=== PATIENT | male | born 1960 | race Asian ===

== ENCOUNTER 2024-01-28 06:00 | Day surgery (SDC) | payer BC ==
[2024-01-24 15:25] LABS: BILIRUBIN,URINE NEGATIVE (NEGATIVE); BLOOD, URINE 3+ (NEGATIVE); COLOR,URINE YELLOW (YELLOW); GLUCOSE,URINE NEGATIVE (NEGATIVE); KETONES,URINE NEGATIVE (NEGATIVE); LEUKOCYTE ESTERASE ,URINE NEGATIVE (NEGATIVE); NITRITE, URINE NEGATIVE (NEGATIVE); PROTEIN URINE NEGATIVE (NEGATIVE); UROBILINOGEN,URINE 0.2 (0.2-1.0)
[2024-01-24 15:29] LABS: BASOPHILS % (AUTO) 0.8 % (0.0-2.0); EOSINOPHILS # (AUTO) 0.1 K/uL (0.0-0.4); EOSINOPHILS % (AUTO) 1.5 % (0.0-4.0); HEMATOCRIT 40.1 % (36-54); LYMPHOCYTES # (AUTO) 1.5 K/uL (1.0-5.5); LYMPHOCYTES % (AUTO) 31.5 % (20.5-51.5); MEAN CORPUSCULAR HEMOGLOBIN 30 pg (27-31); MEAN CORPUSCULAR HGB CONC 35 % (32-36); MEAN CORPUSCULAR VOLUME 86 fL (79.0-98.0); MONOCYTES # (AUTO) 0.3 K/uL (0.0-1.0); MONOCYTES % (AUTO) 6.9 % (1.7-9.3); NEUTROPHILS # (AUTO) 2.9 K/uL (1.8-7.7); NEUTROPHILS % (AUTO) 59.3 % (40.0-70.0); PLATELET COUNT (AUTO) 169 K/uL (130-430); RED BLOOD CELL COUNT(AUTO) 4.67 MIL/uL (4.2-6.2); RED CELL DISTRIBUTION WIDTH 13.2 % (9.0-15.0); WHITE BLOOD COUNT (AUTO) 4.8 K/uL (4.8-10.8)
[2024-01-24 15:31] LABS: CLARITY/URINE SLIGHTLY CLOUDY (CLEAR)
[2024-01-24 15:32] LABS: BACTERIA,URINE RARE /HPF (None Seen); MUCUS,URINE None Seen /LPF (None Seen); RBC,URINE >100 /HPF (0-3); WBC,URINE 0-3 /HPF (0-3)
[2024-01-24 15:40] LABS: CALCIUM 9.1 mg/dL (8.4-11.0); CREATININE 1.11 mg/dL (0.55-1.30); TOTAL BILIRUBIN 0.5 mg/dL (0.0-1.0); TOTAL PROTEIN, SERUM 7.6 g/dL (6.4-8.3)
[~2024-01-28] VITALS: Ht 170.2 cm; Wt 67.1 kg
[2024-01-28 06:43] VITALS: O2SAT 98
[2024-01-28] MEDS ORDERED: MIDAZOLAM HCL 2 MG/2 ML VIAL (VERSED) ONE (07:40)
[2024-01-28] MEDS ORDERED: ONDANSETRON HCL 4 MG/2 ML VIAL ONE (07:40)
[2024-01-28] MEDS ORDERED: fentaNYL CITRATE/PF 100 MCG/2 ML AMP ONE (07:40)
[2024-01-28] MEDS ORDERED: cefTRIAXone 1 GM VIAL ONE (07:40)
[2024-01-28] MEDS ORDERED: KETOROLAC TROMETHAMINE 30 MG VIAL ONE (07:40)
[2024-01-28] MEDS ORDERED: DEXAMETHASONE SOD PHOSPHATE 4 MG/ML VIAL ONE (07:40)
[2024-01-28] MEDS ORDERED: LR 1,000 ML IV.SOLN IV ONE (07:40)
[2024-01-28] MEDS ORDERED: SEVOFLURANE 15 MIN GAS INH ONE (07:40)
[2024-01-28] MEDS ORDERED: LR 1,000 ML IV SCH (08:30)
[2024-01-28] MEDS ORDERED: hydrALAZINE HCL 20 MG/ML VIAL IVP PRN (08:30)
[2024-01-28] MEDS ORDERED: HYDROmorphone 1 MG/ML INJ. CARTRIDGE IVP PRN ×2 (08:30)
[2024-01-28] MEDS ORDERED: ONDANSETRON HCL 4 MG/2 ML VIAL IVP PRN (08:30)
[2024-01-28] MEDS ORDERED: METOCLOPRAMIDE HCL 10 MG/2 ML VIAL IVP PRN (08:30)
[2024-01-28] MEDS ORDERED: MEPERIDINE HCL/PF 25 MG/ML DISP.SYRIN IVP PRN (08:30)
[2024-01-28] MEDS ORDERED: ACETAMINOPHEN I.V. 1000 MG 100 ML IV ONE (08:49)
[2024-01-28 13:53] VITALS: BP_SYST 148; PULSE 78; RESP 18
== END 2024-01-28 11:47 | disposition home or self-care (01) ==
LOC: SMU 06:00 → SDS 06:00
PROVIDERS: ATTEND Urology
DX: N40.1 Benign prostatic hyperplasia with lower urinary tract symptoms (principal); N13.8 Other obstructive and reflux uropathy; N21.0 Calculus in bladder; Z79.899 Other long term (current) drug therapy
CPT/HCPCS: 81000; 80053; 81001; 85025; 87081; 36415; 52601; 52318; 82360; 88300; J0696; J1100; J1885; J2250; J2405; J3010; J7120; C1769; J0131; 81015